=== PATIENT | male | born 1990 | race Caucasian/White ===

== ENCOUNTER → 2018-09-15 | Outpatient (CLI) | payer OTHER | LOC: M.MRI 09-10 07:30 | DX: S62.001D Unspecified fracture of navicular [scaphoid] bone of right wrist, subsequent encounter for fracture with routine healing (principal); M19.031 Primary osteoarthritis, right wrist; X58.XXXD Exposure to other specified factors, subsequent encounter ==

== ENCOUNTER → 2019-09-16 | Outpatient (CLI) | payer OTHER ==
[2019-09-16 12:34] LABS: HEMATOCRIT 43.3 % (42.0-52.0); HEMOGLOBIN 15.1 gm/dL (14.0-18.0); MCH 30.9 pg (26.0-34.0); MCHC 34.9 g/dL (28.0-37.0); MCV 88.6 fL (80.0-100.0); MPV 7.6 fl. (7.2-11.1); RBC 4.89 mil/uL (4.50-6.00); RDW-CV 13.5 % (10.5-14.5); WBC 6.5 thou/uL (4.0-11.0)
[2019-09-16 12:46] LABS: CALCIUM 8.8 mg/dL (8.5-10.1); CREATININE 0.9 mg/dL (0.6-1.3); POTASSIUM 4.2 mmol/L (3.5-5.1); TOTAL BILIRUBIN 0.6 mg/dL (<0.1-1.0); TOTAL PROTEIN 7.4 g/dL (6.4-8.2)
== END ==
LOC: M.LAB 12:20
PROVIDERS: ATTEND Family Medicine
DX: R63.4 Abnormal weight loss (principal); R53.82 Chronic fatigue, unspecified

== ENCOUNTER → 2019-09-24 | Outpatient (CLI) | payer OTHER | END | disposition home or self-care (01) | LOC: M.MRI 08:30 | PROVIDERS: ATTEND Family Medicine | DX: H53.2 Diplopia (principal); M62.81 Muscle weakness (generalized); R20.2 Paresthesia of skin ==

== ENCOUNTER 2020-01-07 07:28 | Emergency (ER) | payer OTHER ==
[~2020-01-07] VITALS: Ht 195.6 cm; Wt 88.5 kg
[2020-01-07 07:35] VITALS: BP 137/80
[2020-01-07 08:04] LABS: INFLUENZA A ANTIGEN Negative (Negative); INFLUENZA B ANTIGEN Negative (Negative)
[2020-01-07] MEDS ORDERED: ZPAK PO (08:24)
[2020-01-07] MEDS ORDERED: VENTOLIN HFA 1818 GM INH (08:24)
== END 2020-01-07 08:51 | disposition home or self-care (01) ==
LOC: M.ERS 07:28
PROVIDERS: Emergency Medicine Emergency Medical Services
DX: J12.9 Viral pneumonia, unspecified (principal); Z20.828 Contact with and (suspected) exposure to other viral communicable diseases

== ENCOUNTER → 2020-03-23 | Outpatient (CLI) | payer OTHER ==
[~2020-03-23] MED LIST: VENTOLIN HFA 1818 GM INH; ZPAK PO
--- NOTE | 2020-04-10 19:06 | SLEEP ---
[address] [address] SLEEP STUDY REPORT Name: YARY YADAV Room: [facility]#: [id number] Admission: 03/23/20 Attend Phys: Juan Roman Discharge: Date of : 86 Report #: [id number] THIS REPORT FOR: cc: Nelsy Christie Linda J. DO ~ Quinn Amaya MD This study has been reviewed in its entirety by a board certified sleep specialist DATE OF SERVICE: 03/23/2020 SLEEP STUDY INDICATION FOR SLEEP STUDY: Daytime sleepiness/hypersomnia. INTERPRETATION: Total duration of the study is 374 minutes out of which he was asleep for 313 minutes with an overall sleep efficiency of 84%. Sleep onset occurred about 11 minutes after lying down in bed and REM onset was 104 minutes after sleep onset. N1 sleep duration is 7%, N2 duration is 46%, N3 duration is 25%, and REM duration is 21%. We did record occasional sleep related respiratory events. These included 6 central apneas in addition to 1 hypopnea and 17 respiratory effort related arousals. Six obstructive apneas were also recorded. The patient's overall apnea-hypopnea index, however, was normal at 2.5 with respiratory disturbance index only mildly elevated to 5.8. Body position data indicates the patient was observed asleep in the supine position for 238 minutes. The rest of the time, the patient was on the right side. Mean heart rate was 95. Periodic limb movement index was 2.7. The patient's arousal index is mildly elevated to 18 mmHg and there is mild sleep fragmentation observed. O2 saturation is adequately maintained throughout the sleep study. Mean heart rate was 95. IMPRESSION: This is an essentially unremarkable sleep study. There are occasional sleep related respiratory events recorded. These, however, are below criteria for a diagnosis of obstructive sleep apnea. O2 saturation is also adequately maintained throughout the sleep study. RECOMMENDATIONS: Clinical correlation is advised for followup of this patient's sleep complaints. <ELECTRONICALLY SIGNED> By: Quinn Amaya MD 04/10/20 1906 1808 1827Aroosevelt Amaya MD /nt
== END ==
LOC: M.SLEEPLAB 03-09 21:00
PROVIDERS: ATTEND Family Medicine
DX: G47.33 Obstructive sleep apnea (adult) (pediatric) (principal); F51.01 Primary insomnia; R53.82 Chronic fatigue, unspecified

== ENCOUNTER 2020-04-22 18:02 | Emergency (ER) | payer OTHER ==
[~2020-04-22] VITALS: Ht 195.6 cm; Wt 93.0 kg
[2020-04-22] MEDS ORDERED: LEXAPRO 10 MG T10 M2 PO (18:25)
[2020-04-22] MEDS ORDERED: ADDERALL 20 MG20 MG PO (18:25)
[2020-04-22 18:42] LABS: ABSOLUTE LYMPHOCYTES 0.6 thou/uL (0.8-5.3); ABSOLUTE MONOCYTES 0.4 thou/uL (0.0-1.2); BASOPHILS 0.4 %; EOSINOPHILS 0.1 %; HEMATOCRIT 49.2 % (42.0-52.0); HEMOGLOBIN 16.5 gm/dL (14.0-18.0); LYMPHOCYTES 14.6 %; MCH 29.6 pg (26.0-34.0); MCHC 33.6 g/dL (28.0-37.0); MONOCYTES 10.5 %; MPV 7.5 fl. (7.2-11.1); NUCLEATED RBCS 0 /100WBC; PLATELET COUNT* 242 thou/uL (150-400); POLYS 74.4 %; RBC 5.59 mil/uL (4.50-6.00); RDW-CV 14.4 % (10.5-14.5)
[2020-04-22 18:50] LABS: CALCIUM 9.2 mg/dL (8.5-10.1); POTASSIUM 4.1 mmol/L (3.5-5.1)
[2020-04-22 18:56] LABS: ALBUMIN 3.8 g/dL (3.4-5.0); TOTAL BILIRUBIN 0.5 mg/dL (<0.1-1.0); TOTAL PROTEIN 7.5 g/dL (6.4-8.2)
[2020-04-22 19:32] LABS: INFLUENZA A ANTIGEN Negative (Negative); INFLUENZA B ANTIGEN Negative (Negative)
[2020-04-22 20:14] VITALS: BP 132/82
--- NOTE | 2020-04-25 16:58 | EKG ---
[place] [address] ELECTROCARDIOGRAM REPORT Name: YARY YADAV Room: [facility]#: [id number] Admission: 04/22/20 Attend Phys: Discharge: 04/22/20 Date of : 86 Date of Service: 04/22/20 1905 Report #: [id number] THIS REPORT FOR: //name// [facility] ED Test Date: 2020-04-22 Test Time: 19:05:12 Pat Name: YARY YADAV Department: Room: Gender: Bankman: AARON Mcarthur : 1990 Requested By: Everardo Mcdonald Order Number: [id number] Lara MD: Cooper Back Measurements Intervals [place] Rate: 102 P: 76 [place]: 164 QRS: 90 QRSD: 100 T: 40 QT: 326 QTc: 425 Interpretive Statements Sinus tachycardia Borderline right axis deviation ST elev, probable normal early repol pattern No previous ECG available for comparison Electronically Signed On 04-25-2020 16:58:42 [employer] by Cooper Back [email or web address] <ELECTRONICALLY SIGNED> By: Cooper Back MD, [facility] 04/25/20 1658 1905 190 Cooper Back MD, [facility] /EPI
== END 2020-04-22 20:16 | disposition home or self-care (01) ==
LOC: M.ERS 18:02
PROVIDERS: Emergency Medicine Emergency Medical Services
DX: B34.9 Viral infection, unspecified (principal); Z20.822 Contact with and (suspected) exposure to COVID-19